=== PATIENT | male | born 1975 | race Caucasian/White ===

== ENCOUNTER 2016-11-29 18:17 | Observation (INO) | payer BC ==
[~2016-11-29] VITALS: Ht 170.2 cm; Wt 93.2 kg
[~2016-11-29 18:17] MED LIST: LEVAQUIN750 MG PO; PROAIR HFA8.5 GM IH
[2016-11-29 19:10] LABS: HEMATOCRIT 49.5 % (38.0-50.0); MCH 28.7 PG (29.0-34.0); MCHC 36.2 G/DL (30.0-36.0); MCV 79.5 FL (86-99); MEAN PLAT.VOLUME 10.8 uM^3 (9.0-12.4); PLATELET COUNT 300 K/uL (156-360); RBC DIS.WIDTH-SD 36.7 % (39-53); RED BLOOD COUNT 6.23 M/uL (4.00-5.50); WHITE BLOOD COUNT 21.5 K/uL (4.1-10.2)
[2016-11-29 19:17] LABS: CHLORIDE 102 mEq/L (99-109); SODIUM 134 mEq/L (136-147)
[2016-11-29 19:19] LABS: GLUCOSE 128 mg/dL (70-99)
[2016-11-29 19:20] LABS: ANION GAP 17 MEQ/L (2-14)
[2016-11-29 19:21] LABS: TOTAL BILIRUBIN 1.2 mg/dL (0.0-1.0)
[2016-11-29 19:22] LABS: ALKALINE PHOSPHATASE 64 IU/L (3-129)
[2016-11-29 19:23] LABS: GFR ESTIMATE (CALCULATED) 33 mL/min/
[2016-11-29 19:24] LABS: UREA NITROGEN (BUN) 53 mg/dL (9-23)
[2016-11-29 19:54] LABS: EOSINOPHIL (%) 0.2 % (0-5); IMMATURE GRANULOCYTE (%) 0.3 % (0.0-0.7); IMMATURE GRANULOCYTE COUNT 0.7 K/uL; LYMPHOCYTE COUNT 2.2 K/uL (1.0-2.8); MONOCYTE (%) 8.6 % (3-12); MONOCYTE COUNT 1.8 K/uL (0-0.8); NEUTROPHIL (%) 80.5 % (45-76); NEUTROPHIL COUNT 17.1 K/uL (1.8-6.4)
[2016-11-29] MEDS ORDERED: ALEVE220 MG PO (19:55)
[2016-11-29] MEDS ORDERED: NORVASC5 MG PO (19:55)
[2016-11-29 20:01] LABS: CREATINE KINASE 576 IU/L (1-294); LIPASE 49 U/L (1.0-51.0)
[2016-11-29 20:49] LABS: ADD MIUA? YES; BILIRUBIN NEGATIVE; BLOOD SMALL; COLOR YELLOW ((YELLOW)); GLUCOSE (STRIP) NEGATIVE; KETONES 20; LEUKOCYTES NEGATIVE; NITRITE NEGATIVE; PROTEIN (STRIP) 30; SPECIFIC GRAVITY 1.026 (1.000-1.030); UROBILINOGEN 0.2 MG/DL (0.2-1.0)
[2016-11-29 20:52] LABS: BACTERIA NONE SEEN /HPF; EPITHELIAL CELLS NONE SEEN /HPF; MUCUS NONE SEEN /LPF; RED BLOOD CELLS 0-5 /HPF (0-5); UCUL ADDED? NO; WHITE BLOOD CELLS 0-5 /HPF (0-5)
[2016-11-30 03:09] VITALS: BP 134/83
[2016-11-30 08:22] VITALS: BP 132/82
[2016-11-30 09:20] LABS: ANION GAP 8 MEQ/L (2-14); CHLORIDE 104 MEQ/L (99-109); GLUCOSE 109 mg/dL (70-99); POTASSIUM 3.9 MEQ/L (3.7-5.4); SAMPLE HEMOLYSIS CHECK 0; SAMPLE ICTERIC CHECK 0; SAMPLE LIPEMIA CHECK 0; SODIUM 136 MEQ/L (136-147); UREA NITROGEN (BUN) 34 mg/dL (9-23)
[2016-11-30 09:22] LABS: GFR ESTIMATE (CALCULATED) 54 mL/min/
[2016-11-30 09:51] LABS: MCH 29.6 PG (29.0-34.0); MCHC 35.3 G/DL (30.0-36.0); RBC DIS.WIDTH-CV 12.8 % (11.8-14.6); RBC DIS.WIDTH-SD 38.7 % (39-53); RED BLOOD COUNT 5.14 M/uL (4.00-5.50)
[2016-11-30 09:53] LABS: HBSG INDEX 0.22; HPCA INDEX 0.14
[2016-11-30 09:53] LABS: MCV 83.7 FL (86-99); WHITE BLOOD COUNT 13.2 K/uL (4.1-10.2)
[2016-11-30 09:54] LABS: ANTI-HEPATITIS A VIRUS (IGM) Nonreactive; ANTI-HEPATITIS B CORE (IGM) Nonreactive; HAV INDEX 0.21
[2016-11-30 09:58] LABS: INFLUENZA A VIRAL ANTIGEN NEGATIVE; INFLUENZA B VIRAL ANTIGEN NEGATIVE
[2016-11-30 10:44] LABS: MEAN PLAT.VOLUME 10.8 uM^3 (9.0-12.4)
[2016-11-30 11:44] LABS: PLATELET COUNT 194 K/uL (156-360)
[2016-11-30 13:15] LABS: C DIFF TOXIN POSITIVE (NEGATIVE)
[2016-11-30 13:18] LABS: PROBE CHECK PASS
[2016-11-30 16:32] VITALS: BP 137/83
[2016-11-30 23:08] VITALS: BP 118/74
[2016-12-01 06:23] LABS: EOSINOPHIL (%) 1.3 % (0-5); EOSINOPHIL COUNT 0.1 K/uL (0-0.3); HEMATOCRIT 42.2 % (38.0-50.0); IMMATURE GRANULOCYTE (%) 0.1 % (0.0-0.7); LYMPHOCYTE COUNT 1.9 K/uL (1.0-2.8); MCH 27.6 PG (29.0-34.0); MCHC 32.9 G/DL (30.0-36.0); MCV 83.7 FL (86-99); MEAN PLAT.VOLUME 10.7 uM^3 (9.0-12.4); MONOCYTE (%) 10.4 % (3-12); MONOCYTE COUNT 1.1 K/uL (0-0.8); NEUTROPHIL (%) 69.9 % (45-76); NEUTROPHIL COUNT 7.2 K/uL (1.8-6.4); PLATELET COUNT 193 K/uL (156-360); RBC DIS.WIDTH-CV 12.7 % (11.8-14.6); RBC DIS.WIDTH-SD 38.4 % (39-53); RED BLOOD COUNT 5.04 M/uL (4.00-5.50); WHITE BLOOD COUNT 10.3 K/uL (4.1-10.2)
[2016-12-01 06:44] LABS: ANION GAP 8 MEQ/L (2-14); CHLORIDE 104 MEQ/L (99-109); CREATINE KINASE 115 IU/L (1-294); GFR ESTIMATE (CALCULATED) > 59 mL/min/; GLUCOSE 99 mg/dL (70-99); POTASSIUM 3.8 MEQ/L (3.7-5.4); SAMPLE HEMOLYSIS CHECK 0; SAMPLE ICTERIC CHECK 0; SAMPLE LIPEMIA CHECK 0; SODIUM 137 MEQ/L (136-147); UREA NITROGEN (BUN) 22 mg/dL (9-23)
[2016-12-01 06:45] LABS: ALKALINE PHOSPHATASE 40 IU/L (3-129); ANION GAP 9 MEQ/L (2-14); CHLORIDE 104 MEQ/L (99-109); GFR ESTIMATE (CALCULATED) > 59 mL/min/; GLUCOSE 96 mg/dL (70-99); POTASSIUM 3.8 MEQ/L (3.7-5.4); SAMPLE HEMOLYSIS CHECK 0; SAMPLE ICTERIC CHECK 0; SAMPLE LIPEMIA CHECK 0; SODIUM 138 MEQ/L (136-147); TOTAL BILIRUBIN 0.7 MG/DL (0.0-1.0); UREA NITROGEN (BUN) 22 mg/dL (9-23)
[2016-12-01] MEDS ORDERED: METRONIDAZOLE500 MG PO (08:12)
[2016-12-01 08:25] VITALS: BP 114/70
== END 2016-12-01 10:18 | disposition home or self-care (01) ==
LOC: EME 18:17 → 5EAST 23:53 → EDOF 23:53 → 5EAST 11-30 02:57
PROVIDERS: Hospitalist; Physician Assistant
DX: A04.7 Enterocolitis due to Clostridium difficile (principal); N17.9 Acute kidney failure, unspecified; I10 Essential (primary) hypertension; R10.9 Unspecified abdominal pain; Z91.09 Other allergy status, other than to drugs and biological substances; D72.829 Elevated white blood cell count, unspecified; E86.0 Dehydration; M62.82 Rhabdomyolysis; F12.10 Cannabis abuse, uncomplicated; Z83.49 Family history of other endocrine, nutritional and metabolic diseases; Z82.0 Family history of epilepsy and other diseases of the nervous system
CPT/HCPCS: 71020; 74176; 80048; 80053; 80074; 81003; 82550; 83605; 83690; 85025; 85027; 86705; 86709; 86803; 87340; 87493; 87502; 93005; 99281; 99285; G0378; J2405; J3010; J7030; J7120

== ENCOUNTER 2017-11-16 08:26 | Emergency (ER) | payer BC ==
[~2017-11-16] VITALS: Ht 170.2 cm; Wt 93.3 kg
[~2017-11-16 08:26] MED LIST changes: +ALEVE220 MG PO; +METRONIDAZOLE500 MG PO; +NORVASC5 MG PO
[2017-11-16 08:28] VITALS: BP 155/98
== END 2017-11-16 10:37 | disposition home or self-care (01) ==
LOC: EME 08:26
DX: B34.9 Viral infection, unspecified (principal)
CPT/HCPCS: 99281; 99284